=== PATIENT | male | born 1960 | race Caucasian/White ===

== ENCOUNTER 2016-05-13 14:32 | Emergency (ER) | payer OTHER, MEDICARE | END 2016-05-13 14:56 | disposition home or self-care (01) | LOC: ER 14:32 | DX: L50.9 Urticaria, unspecified (principal); I25.10 Atherosclerotic heart disease of native coronary artery without angina pectoris; I25.2 Old myocardial infarction; E11.9 Type 2 diabetes mellitus without complications; I10 Essential (primary) hypertension; Z87.891 Personal history of nicotine dependence; Z88.1 Allergy status to other antibiotic agents; Z88.2 Allergy status to sulfonamides ==

== ENCOUNTER 2016-05-18 15:10 | Emergency (ER) | payer MEDICARE, OTHER | END 2016-05-18 15:49 | disposition home or self-care (01) | LOC: ER 15:10 | DX: L50.9 Urticaria, unspecified (principal); Z79.4 Long term (current) use of insulin; Z79.84 Long term (current) use of oral hypoglycemic drugs; Z79.82 Long term (current) use of aspirin; Z88.1 Allergy status to other antibiotic agents; Z88.2 Allergy status to sulfonamides ==

== ENCOUNTER 2016-05-19 05:17 | Emergency (ER) | payer MEDICARE, OTHER | END 2016-05-19 06:00 | disposition home or self-care (01) | LOC: ER 05:17 | DX: L50.9 Urticaria, unspecified (principal); I25.2 Old myocardial infarction; E11.9 Type 2 diabetes mellitus without complications; I10 Essential (primary) hypertension; Z79.4 Long term (current) use of insulin; Z79.84 Long term (current) use of oral hypoglycemic drugs; Z87.891 Personal history of nicotine dependence; Z79.82 Long term (current) use of aspirin; Z79.899 Other long term (current) drug therapy; Z88.1 Allergy status to other antibiotic agents; Z88.2 Allergy status to sulfonamides | CPT/HCPCS: 96372 ==